=== PATIENT | female | born 1965 | race Caucasian/White ===

== ENCOUNTER → 2020-02-17 | Outpatient (CLI) | payer BC ==
--- NOTE | 2020-02-24 09:40 | RAD ---
DATE: 02/17/2020 11:33 AM EXAM: MAMMO [facility] SCREENING BILATERAL HISTORY: Screening COMPARISON: 07/30/2018, right diagnostic mammogram of 07/26/2017 and screening mammogram of 07/17/2017 and 07/10/2016 Bilateral CC and MLO views of the breasts were performed. Bilateral breast tomosynthesis was performed in CC and MLO projections. This study was interpreted with the benefit of Computerized Aided Detection (CAD). FINDINGS: Breast Density: SCATTERED The breast parenchyma shows scattered fibroglandular densities. Breast parenchyma level B Asymmetry in the superior right breast at the approximate 12:00 position 4 cm from the nipple is best seen on cc tomographic image 38 and needs additional imaging with spot compression view, full-field lateral view and targeted right breast ultrasound. There is questionable associated architectural distortion. In addition, there are calcifications in the lateral superior right breast that need additional imaging with magnification views. No suspicious masses, microcalcifications or architectural distortion is present to suggest malignancy in the left breast. The visualized axillae are unremarkable. IMPRESSION: No mammographic evidence of malignancy. BI-RADS CATEGORY: 0 INCOMPLETE: NEEDS ADDITIONAL IMAGING EVALUATION AND/OR PRIOR MAMMOGRAMS FOR COMPARISON. RECOMMENDED FOLLOW-UP: ADD ADDITIONAL IMAGING The patient will be contacted to return for additional imaging and a supplemental report will follow. PQRS compliance statement: Patient information was entered into a reminder system with a target due date for the next mammogram. Mammography is a sensitive method for finding small breast cancers, but it does not detect them all and is not a substitute for careful clinical examination. A negative mammogram does not negate a clinically suspicious finding and should not result in delay in biopsying a clinically suspicious abnormality. "Our facility is accredited by the [employer] Mammography Program."
== END ==
LOC: MAMMO 11:27
PROVIDERS: ATTEND Physician Assistant
DX: Z12.31 Encounter for screening mammogram for malignant neoplasm of breast (principal); N64.89 Other specified disorders of breast
CPT/HCPCS: 77063; 77067

== ENCOUNTER → 2020-03-04 | Outpatient (CLI) | payer BC ==
--- NOTE | 2020-03-15 08:42 | RAD ---
EXAM: RIGHT BREAST DIAGNOSTIC MAMMOGRAM Indication: Screening recall for right breast asymmetry. COMPARISON: Screening mammogram of 02/17/2020. FINDINGS: Additional views of the right breast in the full field ML view and CC spot compression view show scattered fibroglandular densities with a changing configuration of the questioned asymmetry in a pattern consistent with overlap of benign fibroglandular tissue. No persistent mammographic abnormality was noted. IMPRESSION: Benign findings on right digital diagnostic mammogram. No evidence of malignancy. Recommend return to routine screening next due in one year. BI-RADS Category 2 Benign findings Electronically signed by: Mago Merida MD (03/15/2020 8:39 AM) [id number]
== END ==
LOC: MAMMO 12:54
PROVIDERS: ATTEND Physician Assistant
DX: R92.2 Inconclusive mammogram (principal)
CPT/HCPCS: 77065

== ENCOUNTER → 2021-02-17 | Outpatient (CLI) | payer BC ==
--- NOTE | 2021-02-17 16:18 | RAD ---
Bilateral digital screening 2-D and 3-D (digital breast tomosynthesis) mammogram: Reason for examination: Routine screening. Comparison: Mammograms from 02/17/2020, 07/30/2018, 07/17/2017, and 07/10/2016. Interpretation was made with the benefit of CAD. FINDINGS: Breast density: Category B. There are scattered areas of fibroglandular density. No suspicious new breast mass, malignant appearing calcifications, or architectural distortion is see n. There is an unchanged group of punctate calcifications in the right upper outer quadrant, 9:30 pos ition about 6 cm from the nipple. IMPRESSION: No evidence of malignancy. Assessment: BI-RADS 2. Benign. Recommendation: Routine screening mammograms. The patient will receive a letter with the results in the mail. Patient information will be entered i nto the mammography reminder system with a target recall date for the next mammogram. A reminder wander er will be generated. Electronically signed by: Terrie Farr MD (02/17/2021 4:16 PM) [id number]
== END ==
LOC: MAMMO 08:16
PROVIDERS: ATTEND Physician Assistant
DX: Z12.31 Encounter for screening mammogram for malignant neoplasm of breast (principal)
CPT/HCPCS: 77063; 77067

== ENCOUNTER → 2021-06-21 | Outpatient (CLI) | payer BC, OTHER ==
--- NOTE | 2021-06-21 15:19 | RAD ---
INDICATION: Screening for osteopenia/osteoporosis. Reason: POST MENOPAUSE / Spl. Instructions: / Hi story: COMPARISON: None. TECHNIQUE: Bone densitometry was performed through the lumbar spine and proximal femur. IMPRESSION: Lumbar Spine: BMD: 1.3 T-Score: 1.0 Range: Normal Proximal Femur: BMD: 1.1 T-Score: 1.4 Range: Normal World Health Organization Criteria for Bone Density: T-Score: > -1.0: Normal Range < -1.0 to -2.5: Osteopenic Range < -2.5: Osteoporotic Range Electronically signed by: Nabor Amin MD (06/21/2021 3:17 PM) [id number]
== END ==
LOC: DXRAD 13:55
PROVIDERS: ATTEND Physician Assistant
DX: Z78.0 Asymptomatic menopausal state (principal)
CPT/HCPCS: 77080